=== PATIENT | male | born 1935 | race Caucasian/White ===

== ENCOUNTER 2016-05-24 23:00 | Inpatient (IN) | payer BC ==
--- NOTE | ~2016-05-24 | CN ---
Consultation Report [facility] [address] [place]. [address] NAME: LAVINIA CHAVEZ : 33 STATUS : ADM IN PAT#: [id number] AGE: 80 ADM/REG DATE : 05/25/16 MR#: [id number] REPORT SERV DATE: 06/04/16 DICTATED BY: JAYE SANCHEZ DATE: 06/04/16 REPORT STATUS : Draft TRANSCRIBED BY: MODL DATE: 06/04/16 NEPHROLOGY CONSULTATION DATE OF CONSULTATION: 06/04/2016 INDICATION FOR CONSULTATION: Recurrent UTI, recurrent acute kidney injury. HISTORY OF PRESENT ILLNESS: Mr. Chavez is an 80-year-old male who is seen for acute on chronic kidney disease that is recurrent following admission for acute kidney injury on chronic kidney disease with MRSA UTI and urinary retention. At time of Espinoza placement, there was greater than 1000 mL of urine. His initial creatinine was 2.65 and fell to a low value of 1.55. He subsequently developed a minor rash, and his creatinine has risen from 1.4 to a value of 3.59. He has had very little urine output according to his daughter. There has been discontinuation of losartan, Maxzide, Demadex due to the kidney failure and rash. Urine eosinophils were negative. His sedimentation rate is elevated to 108. Complements were normal. He currently has been afebrile and hemodynamically stable with a white blood cell count that was 11.4. He has been on prolonged vancomycin, transitioning to Zyvox since admission. PAST MEDICAL HISTORY: CKD stage 3, baseline creatinine likely 1.15 to 1.5; hypertension; chronic atrial fibrillation; lymphedema; BPH with urinary retention status post recent TURP; MRSA UTI; hyponatremia; lacunar strokes; and gout. PAST SURGICAL HISTORY: Recent cysto with TURP on 05/31/2016. PAST SURGICAL HISTORY: Cervical spine surgery x3, cholecystectomy, appendectomy, hemorrhoidectomy with recent TURP. ALLERGIES: ALLERGIES TO LIPITOR. CURRENT MEDICATIONS: Current medications include gabapentin, Zyvox, metoprolol, Protonix, hydralazine, and propafenone. Coumadin has been on hold due to prostate surgery. REVIEW OF SYSTEMS: The patient is too lethargic to obtain. Daughter at bedside indicates that he has had no urine output. His edema is better. He is having no shortness of breath. He is tolerating intake without difficulty, having no diarrhea. Otherwise 12-point review of systems is unobtainable. PHYSICAL EXAMINATION: GENERAL: Elderly male, lethargic, arousable, nonverbal. VITAL SIGNS: Temperature 97.9, blood pressure 132/66, pulse 83, and respiratory rate 16. HEENT: Eyes, no scleral icterus. Pupils equal, reactive to light. Extraocular movement intact. Nares patent. No discharge. Throat, no injection. Mucous membranes somewhat dry. Consultation Report [place] [id number] [facility] [address] NAME: LAVINIA CHAVEZ : 33 STATUS : ADM IN [facility]#: [id number] AGE: 80 ADM/REG DATE : 05/25/16 MR#: [id number] REPORT SERV DATE: 06/04/16 DICTATED BY: JAYE SANCHEZ DATE: 06/04/16 REPORT STATUS : Draft TRANSCRIBED BY: KRISTEN DATE: 06/04/16 NECK: No thyromegaly, masses, or bruits. CHEST/LUNGS: Few late crackles laterally and posteriorly. No wheezing. No dullness. CARDIAC: Irregular rhythm, 1/6 systolic ejection murmur. No gallop. No rub. ABDOMEN: Supple. Normoactive bowel sounds. Nontender. No hepatosplenomegaly. No guarding. : Indwelling Espinoza. Rectal not performed. EXTREMITIES: Trace edema. No calf tenderness. DERMIS: Minimal rash under axilla and on the right thigh. No other skin lesions of significance. NEUROLOGIC: Moves all extremities. Cranial nerves appear intact. MUSCULOSKELETAL: No deformity. IMPRESSION: 1. 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 I doubt significant angiotensin receptor lyn effect and presently doubt infection. 2. Dermatitis, possible acute drug reaction. Presently, this is minimal. 3. Hypertension. 4. Chronic atrial fibrillation, Coumadin on hold. 5. History of lower extremity lymphedema. 6. Anemia. 7. Benign prostatic hyperplasia with urinary retention status post TURP on 05/31/2016. 8. MRSA urinary tract infection. 9. Hyponatremia. 10.Gout. 11.Remote lacunar strokes. PLAN: 1. Concur with discontinuation of Maxzide, Demadex. 2. We will discontinue Neurontin and Protonix. 3. We will obtain ID consult to determine need for ongoing antibiotics. 4. Postvoid residual if elevated would replace Espinoza. 5. Edecrin if needed for diuresis. CG/KRISTEN Jaye Sanchez M.D. / [id number] CC: Rafa Ram M.D. Consultation Report [address] [place]. [address] NAME: LAVINIA CHAVEZ : 33 STATUS : ADM IN [facility]#: [id number] AGE: 80 ADM/REG DATE : 05/25/16 MR#: [id number] REPORT SERV DATE: 06/04/16 DICTATED BY: JAYE SANCHEZ DATE: 06/04/16 REPORT STATUS : Draft TRANSCRIBED BY: MODL DATE: 06/04/16 Lenora Adams M.D.
--- NOTE | ~2016-05-24 | DS ---
Discharge Summary [facility] [address] [place]. [address] NAME: LAVINIA CHAVEZ : 33 STATUS : ADM IN PAT#: [id number] AGE: 80 ADM/REG DATE : 05/25/16 MR#: [id number] REPORT SERV DATE: 06/14/16 DICTATED BY: ANGELA TOUSSAINT DATE: 06/14/16 REPORT STATUS : Draft TRANSCRIBED BY: MODL DATE: 06/14/16 ADMISSION DATE: 05/25/2016 DISCHARGE DATE: 06/14/2016 FINAL HOSPITAL DIAGNOSES: 1. Acute kidney injury on chronic kidney disease, status post acute renal failure. Currently back off temporary dialysis. 2. Methicillin-resistant Staphylococcus aureus urinary tract infection, resolved. 3. Hypertension. 4. Atrial fibrillation. 5. Urinary retention, status post transurethral resection of the prostate. CONSULTATIONS: Urology, Nephrology, Intervention Radiology, and Infectious Disease. PROCEDURES: As listed in previous interim summaries. CURRENT PHYSICAL FINDINGS AND HISTORY OF PRESENT ILLNESS: Please see initially dictated H and P by Dr. Scott on 05/25/2016, interim summary by Dr. Quinteros on 06/01/2016, and interim summary by Todd Higgins on 06/07/2016. I took over the patient's care on 06/08/2016, and I will dictate from that point. Briefly, the patient had been admitted for urinary obstruction, had MRSA UTI, was treated, underwent TURP, appears to have had a drug reaction, had acute kidney injury, temporary hemodialysis, and was undergoing dialysis when I saw him on 06/08/2016. He had been clinically stable at that time. He had undergone a renal biopsy and results were back on 06/09/2016. It was elected to treat him with high-dose steroids for 3 days to hopefully improve his kidney function, which was done and he was temporarily started on a sliding scale. Nephrology continued to follow him and dialyze him as necessary. It was noted at that time that the patient had been off his Coumadin, which he had been on for atrial fibrillation due to his TURP and then his renal biopsy on 06/07/2016, so his Coumadin was restarted. The patient, however, was noted to be in sinus rhythm on his telemetry here. Pharmacy adjusted and dosed his Coumadin. As the patient's renal function continue to improve, dialysis was withheld. He seemed to be steroid-responsive. Infectious Disease had signed off from his UTI, which had resolved. He continued to have his Espinoza catheter and Urology was following him periodically. Daily INRs were followed and INR was increasing; however, it was then felt necessary to hold his Coumadin for his line removal, which was done. The patient's only other complaint was trouble sleeping and Seroquel was given. Urology was able to remove his catheter. He was able to void. He was having no hematuria from withdrawing the anticoagulants, and they signed off on 06/13/2016. His catheter was removed on 06/14/2016 and he is currently not having any difficulty post removal. His steroids have titrated off. His blood sugar checks have stopped. He did complain of constipation, which was treated on 06/13/2016 and PT continued to work with him. He will receive 4 mg of Coumadin today. Interventional Radiology approved him restarting his Coumadin. He is off dialysis. Nephrology signed off and Urology signed off. The patient has been accepted at [facility] and will transfer this evening. MEDICATIONS: Toprol-XL 50 one per day, Rythmol 225 b.i.d., Seroquel 50 at bedtime, and Carafate 1 g before meals and at bedtime. Coumadin dose will be 4 mg this evening, he was Discharge Summary [address] [address] NAME: LAVINIA CHAVEZ : 33 STATUS : ADM IN [facility]#: [id number] AGE: 80 ADM/REG DATE : 05/25/16 MR#: [id number] REPORT SERV DATE: 06/14/16 DICTATED BY: ANGELA TOUSSAINT DATE: 06/14/16 REPORT STATUS : Draft TRANSCRIBED BY: MODRay DATE: 06/14/16 previously on 3, we will ask the daily INRs to be checked and Coumadin adjusted accordingly. Hydralazine 50 q.8, hydrocodone 5/325 q.i.d. p.r.n., Prevacid 15, and Tylenol p.r.n. He will not resume his Zyloprim, his Cozaar, his Pyridium, and his Bactrim. They were on his home medication list. He is to follow up with Nephrology in one to two weeks, and Dr. Fitzpatrick in six weeks. ALFRED/KRISTEN Angela Toussaint M.D. / [id number]
--- NOTE | ~2016-05-24 | OP ---
Record Of Operation [facility] [address] [place]. [address] NAME: LAVINIA CHAVEZ : 33 STATUS : ADM IN PAT#: [id number] AGE: 80 ADM/REG DATE : 05/25/16 MR#: [id number] REPORT SERV DATE: 05/31/16 DICTATED BY: GIGI RAYA DATE: 05/31/16 REPORT STATUS : Draft TRANSCRIBED BY: MODL DATE: 05/31/16 DATE OF PROCEDURE: 05/31/2016 PREOPERATIVE DIAGNOSIS: Urinary retention. POSTOPERATIVE DIAGNOSIS: Urinary retention. PROCEDURE: Cysto TURP. ANESTHESIA: General inhalation. SURGEON: Gigi Raya M.D. ESTIMATED BLOOD LOSS: Less than 100 mL. COMPLICATIONS: None. SPECIMENS: Prostate chips. DRAINS: One #24, 30 mL, three-way Espinoza catheter. IMMEDIATE POSTOP: Satisfactory. DESCRIPTION OF PROCEDURE: The patient was brought in the cysto suite, given inhalational anesthetic, and placed in lithotomy position. Perineum and genitalia were prepped and draped in sterile fashion. Video cystourethroscopy was then performed using #22 cystoscope with Foroblique lens. Distal urethra was normal. Prostate was moderately large in size. Bilobar configuration with a broad base median lobe. Bladder showed moderate trabeculation. No cellules, diverticular stones, blood clots, or tumors were noted. The ureteral orifices were identified and checked periodically throughout the case. Resection to be dictated below and at the close of resection be dictated below were found to be grossly undisturbed and uninvolved in the resected field. Likewise the external sphincter was not involved. At this point, the cystoscope was removed. The urethra was dilated with Emily sounds to a 30 followed by insertion of a #28 continuous flow resectoscope sheath and obturator. The obturator was removed and placed in working element and Foroblique lens. The obstructing tissue was then resected in the following manner: Initial area to be resected was the broad- based median lobe down to circular muscle fibers of the bladder wall. This was followed by resection of the anterior lobe, left lateral lobe, right lateral lobe, floor of the apex, in that order. Cautery was obtained using a "roller" electrode. Hemostasis was quite satisfactory. Orifices were not involved. Prostate chips were evacuated using the Trang evacuator. Bladder was checked for residual chips. None were noted. At this point, #24, 30 mL, three-way Espinoza catheter was placed in the bladder. Balloon inflated, hooked to drainage and continuous irrigation. Taped in gentle traction on the patient's thigh. Irrigant returned clear. The patient was awakened and sent to recovery in satisfactory condition. There were no complications. Record Of Operation [address] [place] [place] [address] NAME: LAVINIA CHAVEZ : 33 STATUS : ADM IN [facility]#: [id number] AGE: 80 ADM/REG DATE : 05/25/16 MR#: [id number] REPORT SERV DATE: 05/31/16 DICTATED BY: GIGI RAYA DATE: 05/31/16 REPORT STATUS : Draft TRANSCRIBED BY: KRISTEN DATE: 05/31/16 MS/KRISTEN Gigi Raya M.D. / [id number] CC: Rickey Quinteros MD
--- NOTE | ~2016-05-24 | IDS ---
Interim Discharge Summary [facility] [address] [place]. [address] NAME: LAVINIA CHAVEZ : 33 STATUS : ADM IN PAT#: [id number] AGE: 80 ADM/REG DATE : 05/25/16 MR#: [id number] REPORT SERV DATE: 06/01/16 DICTATED BY: RICKEY PEREZ DATE: 05/31/16 REPORT STATUS : Draft TRANSCRIBED BY: MODL DATE: 05/31/16 ADMISSION DATE: 05/25/2016 DISCHARGE DATE: DATE OF INTERIM DISCHARGE: 05/31/2016. CONSULT: Gigi Fitzpatrick M.D. for Urology. PROCEDURES DONE: 05/31/[address] Kate, KEVIN. The patient had no complications. Awaiting for preliminary report. CHIEF COMPLAINT: Urinary obstruction despite having a Espinoza. HISTORY OF HOSPITAL STAY: An 80-year-old white male with past medical history of atrial fibrillation on Coumadin, chronic kidney disease stage 3, MRSA infection in the urine, hypertension, gout, presenting with urinary retention despite being on Espinoza. The patient was being treated for his urinary retention. The patient was having BPH. Initially as an outpatient, the patient has had his Coumadin on hold pending for TURP. However, the patient is continuing to having MRSA in his urine. MRSA was sensitive to vancomycin which the patient was receiving during the hospital stay. It took a little bit of approximately a week's time before the patient's MRSA in the urine improved. Once the patient underwent procedure, the patient shows no complication, has been symptom free so far from his TURP. DIAGNOSES ON INTERIM DISCHARGE: 1. Stop urination secondary to BPH. Currently, urology is on consult. The patient had a status post TURP which is doing fine. Continue [address] way Espinoza. 2. Urinary retention. 3. BPH, currently improved status post TURP. 4. Acute kidney injury secondary to problem #1. The patient's kidney function is improving. Continue hydration. 5. Urinary tract infection secondary to MRSA. The patient received extensive vancomycin during his stay. He will continue vancomycin for coverage at this time. Questionable if Urology will continue vancomycin as an outpatient. 6. Chronic atrial fibrillation, on heparin drip. Currently, the patient's Coumadin has been on hold. We will hold heparin at this time due to status post TURP. 7. Lymph edema, currently asymptomatic. SELENE/KRISTEN Rickey Perez MD / [id number] Interim Discharge Summary [address] [address] NAME: LAVINIA CHAVEZ : 33 STATUS : ADM IN [facility]#: [id number] AGE: 80 ADM/REG DATE : 05/25/16 MR#: [id number] REPORT SERV DATE: 06/01/16 DICTATED BY: RICKEY PEREZ DATE: 05/31/16 REPORT STATUS : Draft TRANSCRIBED BY: KRISTEN DATE: 05/31/16 CC: Rickey Perez MD
--- NOTE | ~2016-05-24 | CN ---
Consultation Report [facility] [address] [place]. [address] NAME: LAVINIA CHAVEZ : 33 STATUS : ADM IN PAT#: [id number] AGE: 80 ADM/REG DATE : 05/25/16 MR#: [id number] REPORT SERV DATE: 06/05/16 DICTATED BY: NIKHIL FELDMAN DATE: 06/05/16 REPORT STATUS : Draft TRANSCRIBED BY: MODL DATE: 06/05/16 INFECTIOUS DISEASE CONSULTATION DATE OF CONSULTATION: 06/05/2016 REASON FOR CONSULTATION: Antibiotic recommendations. HISTORY OF PRESENT ILLNESS: This is an 80-year-old man with a past medical history of chronic kidney disease, hypertension, atrial fibrillation, and BPH. He suffered a fall back in April and lacerated his scalp, which required a surgical repair and postoperatively developed a urinary retention and has had a Espinoza catheter in place since mid April. Plans have been made for outpatient TURP, but this was delayed and then the patient developed symptoms suggestive of infection and was started on Bactrim as an outpatient after a urine culture on 05/19 and 05/22 grew MRSA. However, he was admitted to the hospital on 05/25 because of increasing suprapubic pain and lack of output from the Espinoza catheter. In the emergency department, the catheter was changed and he had 1000 mL out. His white count was 15,500 and creatinine had gone up to 2.65 from 1.57 the previous week. His urinalysis also showed marked pyuria, and the urine culture again grew MRSA. The patient was placed on vancomycin. On 05/31, he underwent TURP via a cystoscopic approach. Pathology showed focal severe acute inflammation and some areas of probable ischemic necrosis. Shortly after that, the patient developed a rash, which has now improved. It was nonpruritic. Since 06/01, the patient has developed worsening creatinine, going from 1.39 on 06/01 to today's value of 4.78. He has had no fever. He has no other complaints to me this morning, other than some mild nausea just this morning. Urinary eosinophils have been negative. The patient's workup also was notable for a sedimentation rate of 108 and normal C3 and C4. The patient's vancomycin was switched to Zyvox on 06/01. He also received 48 hours of cefoxitin on 05/30 and 05/31 along with doses of ceftriaxone on 05/21 and 05/25. PAST MEDICAL HISTORY: In addition to the above is notable for gout, cholecystectomy, appendectomy, hemorrhoidectomy, cervical spine surgery, and strokes in 2003. ALLERGIES: LIPITOR. PRESENT MEDICATIONS: In addition to the Zyvox include Neurontin, hydralazine, Toprol-XL, Protonix, Rythmol. SOCIAL HISTORY: Distant smoker. Nondrinker. Lives with his of many years. Just retired in March. FAMILY HISTORY: Unremarkable to the present infectious disease issue. REVIEW OF SYSTEMS: Denies any abdominal pain, chest pain, shortness of breath, cough, or diarrhea. He is anorexic. Consultation Report [address] [place]. [address] NAME: LAVINIA CHAVEZ : 33 STATUS : ADM IN [facility]#: [id number] AGE: 80 ADM/REG DATE : 05/25/16 MR#: [id number] REPORT SERV DATE: 06/05/16 DICTATED BY: NIKHIL FELDMAN DATE: 06/05/16 REPORT STATUS : Draft TRANSCRIBED BY: KRISTEN DATE: 06/05/16 PHYSICAL EXAMINATION: VITAL SIGNS: The patient weighs 131 kg. He is presently afebrile. Blood pressure 111/69, pulse 94, respiratory rate 16, oxygen saturation 94%. GENERAL: He is alert and pleasant, in no acute distress at all. HEAD AND NECK: Extraocular movements were intact. The oral cavity shows no thrush. Neck is supple. LUNGS: Clear to auscultation anteriorly and laterally. CARDIAC: Without murmur, gallop, or rub. ABDOMEN: Obese. Bowel sounds are present. The abdomen is soft and nontender. EXTREMITIES: Show some ppig-an-djzey lower extremity edema. SKIN: Reveals an erythematous, mainly purpuric rash involving mainly at this point the lateral thighs and hips. Some of these lesions are slightly palpable. The patient has a Espinoza catheter in place. He has peripheral IV without phlebitis. LABORATORY STUDIES: White blood cell count today 9.1, hemoglobin 10.8, platelets are 393. Creatinine of 4.78. Albumin 2.0. Sedimentation rate 108. Liver function tests back on 05/31 were normal. MICROBIOLOGY STUDIES: As outlined above. The patient had followup urine cultures on 05/28 and 05/30 and yesterday, which were negative. Most recent urinalysis from yesterday shows 100 mg/dL of protein, large blood, large leukocyte esterase, greater than 192 red cells, 27 white blood cells. ANCA and SPEP are pending. IMPRESSION: MRSA catheter-associated urinary tract infection on admission. The patient is now on day 12 of antibiotic therapy for this, which has been Zyvox since 06/01. The patient's course is complicated by acute kidney injury of uncertain etiology along with a rash. Importantly, this rash is improving despite the patient still being on Zyvox, and I am very doubtful that the Zyvox is related to the acute kidney injury. Urinary eosinophils are also negative. Certainly, it would be more likely if this is drug related that it would be secondary to the vancomycin that he had been on along with other possibilities including potentially the thiazide diuretics. PLAN: 1. I recommend continuing the Zyvox through 06/07 to complete two weeks of therapy for this complicated UTI. The patient did have some nausea this morning, but overall he has tolerated it well. 2. Consider renal ultrasound. /KRISTEN Nikhil Feldman M.D. Consultation Report [address] [address] NAME: LAVINIA CHAVEZ : 33 STATUS : ADM IN [facility]#: [id number] AGE: 80 ADM/REG DATE : 05/25/16 MR#: [id number] REPORT SERV DATE: 06/05/16 DICTATED BY: NIKHIL FELDMAN DATE: 06/05/16 REPORT STATUS : Draft TRANSCRIBED BY: MODL DATE: 06/05/16 / [id number] CC: Regla Gary M.D.
--- NOTE | ~2016-05-24 | IDS ---
Interim Discharge Summary [facility] [address] [place]. [address] NAME: LAVINIA CHAVEZ : 31 STATUS : ADM IN [facility]#: [id number] AGE: 80 ADM/REG DATE : 05/25/16 MR#: [id number] REPORT SERV DATE: 06/08/16 DICTATED BY: TODD BORGES DATE: 06/07/16 REPORT STATUS : Draft TRANSCRIBED BY: MODL DATE: 06/07/16 ADMISSION DATE: 05/25/2016 DISCHARGE DATE: REASON FOR ADMISSION: This is an 80-year-old male with a complicated urinary obstruction that presented with further urinary obstruction despite having Espinoza catheter. The patient was admitted with severe urinary obstruction, acute kidney injury on chronic kidney disease stage III, and UTI. DISCHARGE DIAGNOSES: 1. Acute kidney injury on CKD III status post acute renal failure. 2. MRSA UTI. 3. Status post rash of unclear etiology. 4. Hypertension. 5. Atrial fibrillation, anticoagulation currently being held. HOSPITAL COURSE: Please see admission H and P from Dr. Adam Scott on 05/25/2016 as well as interim discharge summary from Rickey Quinteros on 06/01/2016 for full details on admission and hospital stay. I picked up the patient actually from Dr. Ram on June 05. 1. Acute kidney injury on CKD status post Vas-Cath placement. Hemodialysis intended to be initiated tomorrow. The patient had been having issues with urinary retention and obstruction secondary to BPH, had been seeing Dr. Fitzpatrick, outpatient and was scheduled for outpatient TURP, but this had been delayed. When the patient showed symptoms of infection, he ended being admitted to the hospital on 05/25 because of increasing suprapubic pain and lack of output from his Espinoza catheter. On admission, his creatinine which had gone up to 2.65 and he had a white cell count of 15.5, when they had placed a new catheter in the ER, and they got 1000 mL out and urinalysis that showed marked pyuria and urine culture once again grew out MRSA. The patient was placed on IV vancomycin and on the , he underwent TURP. Pathology had showed severe acute inflammation with some areas of probable ischemic necrosis. Shortly after this, the patient would develop a rash which is now improved, is nonpruritic and since June 01, the patient has been developing worsening creatinine which went from 1.39 on the up to 4.78 and now up to 6.86, leading to him have a Vas-Cath being placed and renal biopsy which was also done today. Due to concerns about the etiology of kidney failure as well as kidney function, his antibiotics have been changed around. Initially was on vancomycin and then placed on Zyvox by Infectious Disease who is following the patient, Dr. Feldman, and then decision was made to frame changer to IV daptomycin, I believe, yesterday on the . The patient's urine output has been worsening and creatinine has been elevating and the patient will start hemodialysis tomorrow. He has also been placed on prednisone 60 mg p.o. daily. The patient is on anticoagulation normally for his atrial fibrillation, but that is currently on hold. CURRENT MEDICATIONS: 1. Metoprolol 50 mg p.o. daily. 2. Propafenone 225 mg p.o. b.i.d. 3. Quetiapine 25 mg p.o. at bedtime. Interim Discharge Summary [address] [address] NAME: LAVINIA CHAVEZ : 31 STATUS : ADM IN PAT#: [id number] AGE: 80 ADM/REG DATE : 05/25/16 MR#: [id number] REPORT SERV DATE: 06/08/16 DICTATED BY: TODD BORGES DATE: 06/07/16 REPORT STATUS : Draft TRANSCRIBED BY: KRISTEN DATE: 06/07/16 4. Carafate 1 g p.o. a.c. at bedtime. 5. Hydralazine 50 mg p.o. q.8 hours. 6. Prednisone 60 mg p.o. daily. CURRENT PLAN: The patient to initiate hemodialysis tomorrow per Renal and further antibiotic orders per Infectious Disease. The patient care to be assumed by Eitan Santiago M.D., this week. SAMPSON/EMIGDIOL Todd Borges APN / [id number] CC: Rafa Doroteo Leanna, M.D. Dunmor Regla Adams M.D. Hal Hill, M.D. Richard Scott Gusso, M.D.
--- NOTE | ~2016-05-24 | HP ---
History And Physical [facility] [id number] [facility]. [address] NAME: LAVINIA CHAVEZ : 31 STATUS : ADM IN PAT#: [id number] AGE: 80 ADM/REG DATE : 05/25/16 MR#: [id number] REPORT SERV DATE: 05/25/16 DICTATED BY: HANDY PETIT DATE: 05/25/16 REPORT STATUS : Draft TRANSCRIBED BY: MODL DATE: 05/25/16 DATE OF ADMISSION: 05/25/2016 CHIEF COMPLAINT: An 80-year-old male with a complicated urinary obstruction, now presenting with further urinary obstruction despite having a Espinoza catheter. HISTORY OF PRESENT ILLNESS: The patient's history was obtained through careful interview with the patient and daughter, coupled with [facility] and [facility] records. The patient's problems seem to have begun when he was stepping up on a chair to get to a high location in April 2016. He fell off the chair and hit his head. There was no loss of consciousness, but he suffered a severe deep laceration of his scalp, that was actually so severe that it was felt the patient should undergo surgical repair under the care Dr. Fonseca. Therefore, underwent anesthesia for repair of this deep laceration. Unfortunately, the anesthesia led to urinary obstruction, and on 04/13/2016, by the patient's recollection, he had a Espinoza catheter placed. He has been followed outpatient by Dr. Gigi Fitzpatrick. Unfortunately, approximately a week ago, the patient was scheduled for outpatient surgery, but had accidentally eaten a meal prior to coming in and so the procedure had to be canceled. Then the patient began to have symptoms that were concerning for infection and a urinalysis on 05/22/2016 showed MRSA infection, for which the patient was placed on Bactrim double strength. Then, on the day leading up to admission, he developed significant suprapubic abdominal pain and pressure, stating "it is like I would like to " and aching quality, a fullness, and 8 to 9 over 10 severity. He was seen in the emergency department. There was no significant drainage from his Espinoza catheter, so that catheter was removed and new Espinoza catheter was placed. The patient has a more than a 1000 mL of postvoid residual drained, with relief of the patient's abdominal discomfort. The patient has had dizziness when he had to take hydrocodone for pain. He did notice some blood clots in his urinary catheter prior to it being "stopped up." No nausea or vomiting. No fevers or chills. He has had progressive increasing lower extremity edema recently. REVIEW OF SYSTEMS: Otherwise, a 14-point review of systems was obtained and was negative. PAST MEDICAL HISTORY: 1. Atrial fibrillation. Hold Coumadin for greater than a week. 2. Holding Coumadin for more than a week now. 3. Chronic kidney disease, stage III. Baseline creatinine of 1.5. 4. MRSA infection. History And Physical [address] [place]. [address] NAME: LAVINIA CHAVEZ : 31 STATUS : ADM IN [facility]#: [id number] AGE: 80 ADM/REG DATE : 05/25/16 MR#: [id number] REPORT SERV DATE: 05/25/16 DICTATED BY: HANDY PETIT DATE: 05/25/16 REPORT STATUS : Draft TRANSCRIBED BY: KRISTEN DATE: 05/25/16 5. Hypertension. 6. Right lentiform nucleus lacunar [place] [address] scan. 7. Gout. 8. No cardiac disease. No lung disease. PAST SURGICAL HISTORY: 1. Cervical spine surgery x3. 2. Cholecystectomy. 3. Appendectomy. 4. Hemorrhoidectomy. ALLERGIES: TO LIPITOR. SOCIAL HISTORY: Quit smoking in the 1970s. No alcohol abuse. He has been to his for 59 years. He has three children. He just retired in March 2016. 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 FAMILY HISTORY: Mother with cancer. CURRENT MEDICATIONS: Include Tylenol p.r.n., allopurinol 300 mg p.o. daily, atenolol with chlorthalidone 100/25 p.o. daily, hydrocodone, p.r.n., Prevacid 15 mg p.o. daily, losartan 100 mg p.o. daily, Pyridium p.r.n., propafenone 225 mg p.o. b.i.d., Bactrim double strength, Coumadin 3 mg p.o. daily. PHYSICAL EXAMINATION: VITAL SIGNS: Temperature 99.3, pulse 71, blood pressure 139/89, respiratory rate 16, and O2 saturation 97% on room air. GENERAL: A pleasant, cooperative, male. No evidence of distress now. HEENT: Pupils equal, round, and reactive to light. No conjunctival pallor. No scleral icterus. Nares are patent. Oropharynx is clear of obstruction. Mildly dry mucous membranes. NECK: Trachea midline. No thyromegaly. LYMPHS: No cervical lymphadenopathy. No supraclavicular lymphadenopathy. No inguinal lymphadenopathy. RESPIRATORY: Clear to auscultation at the bases. No wheezes, rales, or rhonchi. Normal respiratory effort. CARDIOVASCULAR: Regular rate and rhythm. No murmurs, rubs, or gallops. The patient does have pitting lower extremity edema, deep and extending up to the knees symmetrically. ABDOMEN: Now it is soft, nontender. No flank tenderness. No hepatosplenomegaly. DERMATOLOGICAL: Warm and dry extremities. No pallor. No cyanosis. PSYCHIATRIC: Normal affect. Good mood. Alert and oriented x3. LABORATORY DATA: White blood cell count 15.5, hemoglobin 13, hematocrit 39, platelets 345. Sodium 127, potassium 4.0, chloride 93, bicarb 20, BUN 44, creatinine 2.65, glucose 90. Liver enzymes within normal limits. Urinalysis shows greater than 182 white blood cells, greater than 182 red blood cells. Significant leukocyte esterase and positive nitrites. History And Physical [address] [address] NAME: LAVINIA CHAVEZ : 31 STATUS : ADM IN [facility]#: [id number] AGE: 80 ADM/REG DATE : 05/25/16 MR#: [id number] REPORT SERV DATE: 05/25/16 DICTATED BY: HANDY PETIT DATE: 05/25/16 REPORT STATUS : Draft TRANSCRIBED BY: MODRay DATE: 05/25/16 STUDIES: A chest x-ray was reviewed in the hospital on the 05/19/2016 and it was reported as negative. ASSESSMENT AND PLAN: 1. Severe urinary obstruction. Replace Espinoza catheter with more than a 1000 mL of postvoid residual. Watch for postobstructive diuretic effect. Consult Dr. Gigi Fitzpatrick, urologist. 2. Acute kidney injury on chronic kidney disease, stage III. Mostly secondary to obstructive uropathy. Place on IV fluids. Monitor closely. 3. Urinary tract infection, with elevated white blood cell count despite Bactrim, with methicillin-resistant Staphylococcus aureus on recent culture. Recheck urine culture. Place on IV vancomycin and IV Rocephin. 4. Chronic atrial fibrillation. Check telemetry. The patient has held Coumadin for more than a week for potential procedure. Check INR. 5. Lymphedema. Check brain natriuretic peptide. I would like to check a venous Doppler ultrasound of lower extremities. KPL/MODL Handy Petit M.D. / [id number] CC: MD Lenora Butterfield M.D. Marty Scheinberg, M.D.
[2016-05-24 22:02] LABS: A/G RATIO 0.6 (0.7-1.9); ALBUMIN 3.2 G/DL (3.5-5.0); CALCIUM, SERUM 9.8 MG/DL (8.5-10.4); CHLORIDE, SERUM 93 MMOL/L (96-112); CO2 (CARBON DIOXIDE) 20 MMOL/L (24-34); GLOBULIN 5.1 G/DL (2.5-4.1); GLUCOSE, SERUM 90 MG/DL (60-99); SGOT(AST) 21 U/L (5-40); SGPT(ALT) 32 U/L (5-65); SODIUM, SERUM 127 MMOL/L (135-148); TOTAL PROTEIN 8.3 G/DL (6.0-8.5)
[2016-05-24 22:03] LABS: ALKALINE PHOSPHATASE 95 U/L (45-117); BUN (BLOOD UREA NITROGEN) 44 MG/DL (6-23); CREATININE 2.65 MG/DL (0.70-1.30); GFR AFRICAN AMERICAN 25 ML/MIN (>=60); GFR NON AFRICAN AMERICAN 21 ML/MIN (>=60)
[2016-05-24 22:10] LABS: BASOPHILS 0.1 %; BASOPHILS ABSOLUTE 0.02 10/3/uL (0.0-0.16); EOSINOPHILS 0.2 %; EOSINOPHILS ABSOLUTE 0.03 10/3/uL (0.0-0.53); HEMATOCRIT 38.8 % (40.0-51.0); HEMOGLOBIN 13.3 g/dL (13.6-17.8); IMMATURE GRANULOCYTES 0.5 %; IMMATURE GRANULOCYTES ABSOLUTE 0.07 10/3/uL (0.0-0.11); LYMPHOCYTES 9.1 %; LYMPHOCYTES ABSOLUTE 1.41 10/3/uL (0.67-4.30); MEAN CORPUS HGB CONC 34.3 g/dL (32.0-36.0); MEAN CORPUSCULAR HEMOGLOB 30.4 pg (26.0-34.0); MEAN PLATELET VOLUME 9.4 fL (9.2-13.0); MONOCYTES 6.8 %; MONOCYTES ABSOLUTE 1.06 10/3/uL (0.21-1.20); NEUTROPHILS 83.3 %; NEUTROPHILS ABSOLUTE 12.89 10/3/uL (2.02-8.40); PLATELET COUNT 345 10/3/uL (150-400); RBC DISTRIBUTION WIDTH 14.4 % (12.0-16.0); RED CELL COUNT 4.37 10/6/uL (4.7-6.1); WHITE BLOOD CELLS 15.5 10/3/uL (4.5-10.5)
[2016-05-24 22:12] LABS: ER CBC TAT 0 Hrs 30 Mins; MANUAL DIFF NO %; MEAN CORPUSCULAR VOLUME 88.8 fL (80-100)
[2016-05-24 22:32] LABS: ASCORBIC ACID (UR NOT ORDER) NEG (NEG); BILIRUBIN, URINE NEGATIVE (NEG); ER URINALYSIS TAT 0 Hrs 14 Mins; KETONE, URINE NEGATIVE (NEG); LEUKOCYTE ESTERASE(NOT OR TRACE (NEG); NITRITE (URINE) POS (NEG); WBC (NOT ORDERED) (RFLEX) > 182 (0-5)
[~2016-05-24 23:00] MED LIST: C25; COZAAR100 MG PO; IBU800 PO; PREV15 PO; RYTHMOL225 MG PO; TENORETIC1 TA1 PO; Z300 PO
[2016-05-25] MEDS ORDERED: TENORETIC1 TA1 PO (02:50)
[2016-05-25] MEDS ORDERED: NORCO1 TA1 PO (02:50)
[2016-05-25] MEDS ORDERED: BACDS PO (02:54)
[2016-05-25] MEDS ORDERED: PYR200 PO (02:54)
[2016-05-25] MEDS ORDERED: COZAAR100 MG PO (02:56)
[2016-05-25] MEDS ORDERED: COUMADIN3 MG PO (02:56)
[2016-05-25] MEDS ORDERED: Z300 PO (02:58)
[2016-05-25] MEDS ORDERED: PREV15 PO (02:59)
[2016-05-25] MEDS ORDERED: T PO (03:00)
[2016-05-25] MEDS ORDERED: RYTHMOL225 MG PO (03:02)
[2016-05-25 06:11] LABS: INTERNATIONAL NORMAL RATI 1.3 UNITS (-); PROTIME (NOT ORD) 16.5 SEC (12.0-14.5)
[2016-05-25 13:25] LABS: HEMATOCRIT 32.9 % (40.0-51.0); MEAN CORPUS HGB CONC 33.4 g/dL (32.0-36.0); MEAN CORPUSCULAR HEMOGLOB 30.5 pg (26.0-34.0); MEAN CORPUSCULAR VOLUME 91.1 fL (80-100); MEAN PLATELET VOLUME 9.1 fL (9.2-13.0); NUCLEATED RED BLOOD CELLS 1.6 /100WBC (0-0); PLATELET COUNT 320 10/3/uL (150-400); RBC DISTRIBUTION WIDTH 14.3 % (12.0-16.0); RED CELL COUNT 3.61 10/6/uL (4.7-6.1); WHITE BLOOD CELLS 9.9 10/3/uL (4.5-10.5)
[2016-05-25 13:26] LABS: MANUAL DIFF YES %
[2016-05-25 13:33] LABS: INTERNATIONAL NORMAL RATI 1.5 UNITS (-); PARTIAL THROMBO TIME 43.4 SEC (22.5-37.2); PROTIME (NOT ORD) 18.4 SEC (12.0-14.5)
[2016-05-25 13:47] LABS: BAND NEUTROPHILS 12 %; LYMPHOCYTES 10 %; LYMPHOCYTES ABSOLUTE (CALC) 0.99 10/3/uL (0.67-4.30); MONOCYTES 8 %; MONOCYTES ABSOLUTE (CALC) 0.79 10/3/uL (0.21-1.20); NEUTROPHILS ABSOLUTE (CALC) 8.12 10/3/uL (2.02-8.40); SEGMENTED NEUTROPHIL (0) 70 %; TOTAL NUCLEATED CELLS 100
[2016-05-25 13:48] LABS: PLATELET ESTIMATE ADQ (ADEQUATE); RBC MORPHOLOGY NORM (NORMAL)
[2016-05-25 19:46] LABS: ALKALINE PHOSPHATASE 96 U/L (45-117); BUN (BLOOD UREA NITROGEN) 41 MG/DL (6-23); CHLORIDE, SERUM 100 MMOL/L (96-112); CO2 (CARBON DIOXIDE) 16 MMOL/L (24-34); GLUCOSE, SERUM 89 MG/DL (60-99); PHOSPHORUS, SERUM 3.2 MG/DL (2.5-4.5); POTASSIUM, SERUM 4.1 MMOL/L (3.5-5.3); SGPT(ALT) 28 U/L (5-65); SODIUM, SERUM 131 MMOL/L (135-148); TOTAL PROTEIN 6.9 G/DL (6.0-8.5); ULTRASENSITIVE TSH 0.492 MCIU/ML (0.358-3.740)
[2016-05-25 19:47] LABS: A/G RATIO 0.6 (0.7-1.9); ALBUMIN 2.5 G/DL (3.5-5.0); CALCIUM, SERUM 8.8 MG/DL (8.5-10.4); GFR AFRICAN AMERICAN 33 ML/MIN (>=60); GFR NON AFRICAN AMERICAN 28 ML/MIN (>=60); GLOBULIN 4.4 G/DL (2.5-4.1); SGOT(AST) 30 U/L (5-40); TOTAL BILIRUBIN 0.5 MG/DL (0-1.2)
[2016-05-26 06:19] LABS: BASOPHILS 0.4 %; BASOPHILS ABSOLUTE 0.03 10/3/uL (0.0-0.16); EOSINOPHILS 0.9 %; EOSINOPHILS ABSOLUTE 0.07 10/3/uL (0.0-0.53); HEMATOCRIT 35.7 % (40.0-51.0); HEMOGLOBIN 12.1 g/dL (13.6-17.8); IMMATURE GRANULOCYTES 0.4 %; IMMATURE GRANULOCYTES ABSOLUTE 0.03 10/3/uL (0.0-0.11); LYMPHOCYTES 20.5 %; LYMPHOCYTES ABSOLUTE 1.55 10/3/uL (0.67-4.30); MEAN CORPUS HGB CONC 33.9 g/dL (32.0-36.0); MEAN CORPUSCULAR HEMOGLOB 30.9 pg (26.0-34.0); MEAN CORPUSCULAR VOLUME 91.3 fL (80-100); MEAN PLATELET VOLUME 9.3 fL (9.2-13.0); MONOCYTES 11.2 %; MONOCYTES ABSOLUTE 0.85 10/3/uL (0.21-1.20); NEUTROPHILS 66.6 %; NEUTROPHILS ABSOLUTE 5.04 10/3/uL (2.02-8.40); PLATELET COUNT 365 10/3/uL (150-400); RBC DISTRIBUTION WIDTH 14.7 % (12.0-16.0); RED CELL COUNT 3.91 10/6/uL (4.7-6.1); WHITE BLOOD CELLS 7.6 10/3/uL (4.5-10.5)
[2016-05-26 06:20] LABS: MANUAL DIFF NO %
[2016-05-26 06:27] LABS: A/G RATIO 0.6 (0.7-1.9); ALBUMIN 2.7 G/DL (3.5-5.0); ALKALINE PHOSPHATASE 86 U/L (45-117); CALCIUM, SERUM 9.3 MG/DL (8.5-10.4); CHLORIDE, SERUM 99 MMOL/L (96-112); GFR AFRICAN AMERICAN 40 ML/MIN (>=60); GFR NON AFRICAN AMERICAN 34 ML/MIN (>=60); GLOBULIN 4.7 G/DL (2.5-4.1); GLUCOSE, SERUM 88 MG/DL (60-99); PHOSPHORUS, SERUM 2.5 MG/DL (2.5-4.5); POTASSIUM, SERUM 3.8 MMOL/L (3.5-5.3); SGOT(AST) 33 U/L (5-40); SGPT(ALT) 35 U/L (5-65); SODIUM, SERUM 134 MMOL/L (135-148); TOTAL BILIRUBIN 0.8 MG/DL (0-1.2); TOTAL PROTEIN 7.4 G/DL (6.0-8.5)
[2016-05-26 06:31] LABS: BUN (BLOOD UREA NITROGEN) 33 MG/DL (6-23); CO2 (CARBON DIOXIDE) 22 MMOL/L (24-34)
[2016-05-27 07:58] LABS: BASOPHILS 0.4 %; BASOPHILS ABSOLUTE 0.03 10/3/uL (0.0-0.16); EOSINOPHILS 1.7 %; EOSINOPHILS ABSOLUTE 0.13 10/3/uL (0.0-0.53); HEMATOCRIT 36.4 % (40.0-51.0); IMMATURE GRANULOCYTES 0.7 %; IMMATURE GRANULOCYTES ABSOLUTE 0.05 10/3/uL (0.0-0.11); LYMPHOCYTES 23.3 %; LYMPHOCYTES ABSOLUTE 1.76 10/3/uL (0.67-4.30); MANUAL DIFF NO %; MEAN CORPUSCULAR HEMOGLOB 30.4 pg (26.0-34.0); MEAN CORPUSCULAR VOLUME 92.2 fL (80-100); MONOCYTES ABSOLUTE 0.68 10/3/uL (0.21-1.20); NEUTROPHILS 64.9 %; NEUTROPHILS ABSOLUTE 4.89 10/3/uL (2.02-8.40); PLATELET COUNT 378 10/3/uL (150-400); RBC DISTRIBUTION WIDTH 14.7 % (12.0-16.0); RED CELL COUNT 3.95 10/6/uL (4.7-6.1); WHITE BLOOD CELLS 7.5 10/3/uL (4.5-10.5)
[2016-05-27 08:26] LABS: ALBUMIN 2.7 G/DL (3.5-5.0); CALCIUM, SERUM 9.2 MG/DL (8.5-10.4); CHLORIDE, SERUM 105 MMOL/L (96-112); CO2 (CARBON DIOXIDE) 20 MMOL/L (24-34); CREATININE 1.36 MG/DL (0.70-1.30); GFR AFRICAN AMERICAN 56 ML/MIN (>=60); GFR NON AFRICAN AMERICAN 48 ML/MIN (>=60); GLUCOSE, SERUM 93 MG/DL (60-99); PHOSPHORUS, SERUM 2.2 MG/DL (2.5-4.5); POTASSIUM, SERUM 4.2 MMOL/L (3.5-5.3); SODIUM, SERUM 138 MMOL/L (135-148)
[2016-05-27 08:27] LABS: BUN (BLOOD UREA NITROGEN) 22 MG/DL (6-23)
[2016-05-27 08:44] LABS: BUN (BLOOD UREA NITROGEN) 22 MG/DL (6-23); CALCIUM, SERUM 9.4 MG/DL (8.5-10.4); CHLORIDE, SERUM 105 MMOL/L (96-112); CO2 (CARBON DIOXIDE) 19 MMOL/L (24-34); CREATININE 1.35 MG/DL (0.70-1.30); GFR AFRICAN AMERICAN 56 ML/MIN (>=60); GFR NON AFRICAN AMERICAN 49 ML/MIN (>=60); GLUCOSE, SERUM 95 MG/DL (60-99); POTASSIUM, SERUM 4.1 MMOL/L (3.5-5.3); SODIUM, SERUM 135 MMOL/L (135-148)
[2016-05-27 13:28] LABS: INTERNATIONAL NORMAL RATI 1.2 UNITS (-); PARTIAL THROMBO TIME 39.2 SEC (22.5-37.2); PROTIME (NOT ORD) 15.1 SEC (12.0-14.5)
[2016-05-28 06:36] LABS: BASOPHILS 0.2 %; BASOPHILS ABSOLUTE 0.02 10/3/uL (0.0-0.16); EOSINOPHILS 1.2 %; EOSINOPHILS ABSOLUTE 0.11 10/3/uL (0.0-0.53); HEMATOCRIT 35.2 % (40.0-51.0); HEMOGLOBIN 11.6 g/dL (13.6-17.8); IMMATURE GRANULOCYTES ABSOLUTE 0.09 10/3/uL (0.0-0.11); LYMPHOCYTES 22.9 %; LYMPHOCYTES ABSOLUTE 2.03 10/3/uL (0.67-4.30); MEAN CORPUSCULAR HEMOGLOB 30.3 pg (26.0-34.0); MEAN CORPUSCULAR VOLUME 91.9 fL (80-100); MONOCYTES 6.7 %; MONOCYTES ABSOLUTE 0.59 10/3/uL (0.21-1.20); NEUTROPHILS ABSOLUTE 6.02 10/3/uL (2.02-8.40); PLATELET COUNT 383 10/3/uL (150-400); RBC DISTRIBUTION WIDTH 14.5 % (12.0-16.0); RED CELL COUNT 3.83 10/6/uL (4.7-6.1); WHITE BLOOD CELLS 8.9 10/3/uL (4.5-10.5)
[2016-05-28 06:43] LABS: MANUAL DIFF NO %
[2016-05-28 06:51] LABS: A/G RATIO 0.6 (0.7-1.9); ALBUMIN 2.6 G/DL (3.5-5.0); ALKALINE PHOSPHATASE 79 U/L (45-117); BUN (BLOOD UREA NITROGEN) 15 MG/DL (6-23); CALCIUM, SERUM 8.9 MG/DL (8.5-10.4); CHLORIDE, SERUM 102 MMOL/L (96-112); CO2 (CARBON DIOXIDE) 20 MMOL/L (24-34); CREATININE 1.26 MG/DL (0.70-1.30); GFR AFRICAN AMERICAN 61 ML/MIN (>=60); GFR NON AFRICAN AMERICAN 53 ML/MIN (>=60); GLOBULIN 4.6 G/DL (2.5-4.1); GLUCOSE, SERUM 108 MG/DL (60-99); PHOSPHORUS, SERUM 2.5 MG/DL (2.5-4.5); POTASSIUM, SERUM 4.2 MMOL/L (3.5-5.3); SGOT(AST) 46 U/L (5-40); SGPT(ALT) 41 U/L (5-65); SODIUM, SERUM 135 MMOL/L (135-148); TOTAL BILIRUBIN 0.7 MG/DL (0-1.2); TOTAL PROTEIN 7.2 G/DL (6.0-8.5)
[2016-05-28 06:54] LABS: PARTIAL THROMBO TIME 42.2 SEC (22.5-37.2)
[2016-05-28 18:17] LABS: ASCORBIC ACID (UR NOT ORDER) NEG (NEG); BILIRUBIN, URINE NEGATIVE (NEG); KETONE, URINE NEGATIVE (NEG); LEUKOCYTE ESTERASE(NOT OR LARGE (NEG)
[2016-05-28 18:19] LABS: WBC (NOT ORDERED) (RFLEX) > 182 (0-5)
[2016-05-29 07:06] LABS: BASOPHILS 0.2 %; BASOPHILS ABSOLUTE 0.02 10/3/uL (0.0-0.16); EOSINOPHILS 0.5 %; EOSINOPHILS ABSOLUTE 0.05 10/3/uL (0.0-0.53); HEMATOCRIT 33.3 % (40.0-51.0); IMMATURE GRANULOCYTES 1.1 %; IMMATURE GRANULOCYTES ABSOLUTE 0.11 10/3/uL (0.0-0.11); LYMPHOCYTES 15.8 %; LYMPHOCYTES ABSOLUTE 1.61 10/3/uL (0.67-4.30); MEAN CORPUSCULAR HEMOGLOB 30.2 pg (26.0-34.0); MEAN CORPUSCULAR VOLUME 91.5 fL (80-100); MEAN PLATELET VOLUME 8.6 fL (9.2-13.0); MONOCYTES 9.1 %; MONOCYTES ABSOLUTE 0.93 10/3/uL (0.21-1.20); NEUTROPHILS 73.3 %; PLATELET COUNT 330 10/3/uL (150-400); RBC DISTRIBUTION WIDTH 14.4 % (12.0-16.0); RED CELL COUNT 3.64 10/6/uL (4.7-6.1); WHITE BLOOD CELLS 10.2 10/3/uL (4.5-10.5)
[2016-05-29 07:17] LABS: MANUAL DIFF NO %
[2016-05-29 07:23] LABS: A/G RATIO 0.5 (0.7-1.9); ALBUMIN 2.4 G/DL (3.5-5.0); ALKALINE PHOSPHATASE 71 U/L (45-117); BUN (BLOOD UREA NITROGEN) 12 MG/DL (6-23); CALCIUM, SERUM 8.5 MG/DL (8.5-10.4); CHLORIDE, SERUM 98 MMOL/L (96-112); CO2 (CARBON DIOXIDE) 21 MMOL/L (24-34); CREATININE 1.23 MG/DL (0.70-1.30); GFR AFRICAN AMERICAN 63 ML/MIN (>=60); GFR NON AFRICAN AMERICAN 54 ML/MIN (>=60); GLOBULIN 4.4 G/DL (2.5-4.1); GLUCOSE, SERUM 118 MG/DL (60-99); PHOSPHORUS, SERUM 2.3 MG/DL (2.5-4.5); POTASSIUM, SERUM 3.8 MMOL/L (3.5-5.3); SGOT(AST) 40 U/L (5-40); SGPT(ALT) 38 U/L (5-65); SODIUM, SERUM 131 MMOL/L (135-148); TOTAL BILIRUBIN 1.6 MG/DL (0-1.2); TOTAL PROTEIN 6.8 G/DL (6.0-8.5)
[2016-05-30 06:20] LABS: ASCORBIC ACID (UR NOT ORDER) NEG (NEG); BILIRUBIN, URINE NEGATIVE (NEG); KETONE, URINE NEGATIVE (NEG); LEUKOCYTE ESTERASE(NOT OR SMALL (NEG); WBC (NOT ORDERED) (RFLEX) 40 (0-5)
[2016-05-30 08:29] LABS: BASOPHILS 0.1 %; BASOPHILS ABSOLUTE 0.01 10/3/uL (0.0-0.16); EOSINOPHILS 0.6 %; EOSINOPHILS ABSOLUTE 0.05 10/3/uL (0.0-0.53); HEMATOCRIT 32.8 % (40.0-51.0); HEMOGLOBIN 10.7 g/dL (13.6-17.8); IMMATURE GRANULOCYTES ABSOLUTE 0.09 10/3/uL (0.0-0.11); LYMPHOCYTES 15.8 %; LYMPHOCYTES ABSOLUTE 1.42 10/3/uL (0.67-4.30); MEAN CORPUS HGB CONC 32.6 g/dL (32.0-36.0); MEAN CORPUSCULAR HEMOGLOB 29.6 pg (26.0-34.0); MEAN CORPUSCULAR VOLUME 90.9 fL (80-100); MEAN PLATELET VOLUME 8.7 fL (9.2-13.0); MONOCYTES ABSOLUTE 0.72 10/3/uL (0.21-1.20); NEUTROPHILS 74.5 %; PLATELET COUNT 359 10/3/uL (150-400); RBC DISTRIBUTION WIDTH 14.5 % (12.0-16.0); RED CELL COUNT 3.61 10/6/uL (4.7-6.1)
[2016-05-30 08:30] LABS: MANUAL DIFF NO %
[2016-05-30 08:39] LABS: A/G RATIO 0.4 (0.7-1.9); ALBUMIN 2.1 G/DL (3.5-5.0); ALKALINE PHOSPHATASE 62 U/L (45-117); BUN (BLOOD UREA NITROGEN) 10 MG/DL (6-23); CHLORIDE, SERUM 101 MMOL/L (96-112); CO2 (CARBON DIOXIDE) 25 MMOL/L (24-34); CREATININE 1.15 MG/DL (0.70-1.30); GFR AFRICAN AMERICAN 68 ML/MIN (>=60); GFR NON AFRICAN AMERICAN 59 ML/MIN (>=60); GLOBULIN 4.8 G/DL (2.5-4.1); GLUCOSE, SERUM 125 MG/DL (60-99); PHOSPHORUS, SERUM 2.1 MG/DL (2.5-4.5); POTASSIUM, SERUM 3.8 MMOL/L (3.5-5.3); SGOT(AST) 35 U/L (5-40); SGPT(ALT) 37 U/L (5-65); SODIUM, SERUM 136 MMOL/L (135-148); TOTAL PROTEIN 6.9 G/DL (6.0-8.5)
[2016-05-30 08:40] LABS: TOTAL BILIRUBIN 0.6 MG/DL (0-1.2)
[2016-05-31 03:44] LABS: BASOPHILS 0.2 %; BASOPHILS ABSOLUTE 0.02 10/3/uL (0.0-0.16); EOSINOPHILS ABSOLUTE 0.08 10/3/uL (0.0-0.53); HEMATOCRIT 31.6 % (40.0-51.0); HEMOGLOBIN 10.5 g/dL (13.6-17.8); IMMATURE GRANULOCYTES 0.9 %; IMMATURE GRANULOCYTES ABSOLUTE 0.07 10/3/uL (0.0-0.11); LYMPHOCYTES 17.9 %; LYMPHOCYTES ABSOLUTE 1.44 10/3/uL (0.67-4.30); MEAN CORPUS HGB CONC 33.2 g/dL (32.0-36.0); MEAN CORPUSCULAR HEMOGLOB 30.4 pg (26.0-34.0); MEAN CORPUSCULAR VOLUME 91.6 fL (80-100); MEAN PLATELET VOLUME 8.7 fL (9.2-13.0); MONOCYTES ABSOLUTE 0.56 10/3/uL (0.21-1.20); NEUTROPHILS ABSOLUTE 5.86 10/3/uL (2.02-8.40); PLATELET COUNT 374 10/3/uL (150-400); RBC DISTRIBUTION WIDTH 14.5 % (12.0-16.0); RED CELL COUNT 3.45 10/6/uL (4.7-6.1)
[2016-05-31 03:51] LABS: MANUAL DIFF NO %
[2016-05-31 03:58] LABS: A/G RATIO 0.4 (0.7-1.9); ALBUMIN 2.1 G/DL (3.5-5.0); ALKALINE PHOSPHATASE 72 U/L (45-117); BUN (BLOOD UREA NITROGEN) 9 MG/DL (6-23); CALCIUM, SERUM 8.8 MG/DL (8.5-10.4); CHLORIDE, SERUM 99 MMOL/L (96-112); CO2 (CARBON DIOXIDE) 25 MMOL/L (24-34); CREATININE 1.54 MG/DL (0.70-1.30); GFR AFRICAN AMERICAN 48 ML/MIN (>=60); GFR NON AFRICAN AMERICAN 41 ML/MIN (>=60); GLOBULIN 4.8 G/DL (2.5-4.1); GLUCOSE, SERUM 111 MG/DL (60-99); PHOSPHORUS, SERUM 2.3 MG/DL (2.5-4.5); SGOT(AST) 34 U/L (5-40); SGPT(ALT) 43 U/L (5-65); SODIUM, SERUM 133 MMOL/L (135-148); TOTAL BILIRUBIN 0.6 MG/DL (0-1.2); TOTAL PROTEIN 6.9 G/DL (6.0-8.5); VANCOMYCIN TROUGH 16.7 MCG/ML (10.0-20.0)
[2016-06-01 06:28] LABS: BASOPHILS 0.1 %; BASOPHILS ABSOLUTE 0.01 10/3/uL (0.0-0.16); EOSINOPHILS 0.9 %; EOSINOPHILS ABSOLUTE 0.09 10/3/uL (0.0-0.53); HEMATOCRIT 34.8 % (40.0-51.0); HEMOGLOBIN 11.5 g/dL (13.6-17.8); IMMATURE GRANULOCYTES 0.8 %; IMMATURE GRANULOCYTES ABSOLUTE 0.08 10/3/uL (0.0-0.11); LYMPHOCYTES 11.5 %; MANUAL DIFF NO %; MEAN CORPUSCULAR HEMOGLOB 30.6 pg (26.0-34.0); MEAN CORPUSCULAR VOLUME 92.6 fL (80-100); MEAN PLATELET VOLUME 8.8 fL (9.2-13.0); MONOCYTES 8.2 %; MONOCYTES ABSOLUTE 0.86 10/3/uL (0.21-1.20); NEUTROPHILS 78.5 %; NEUTROPHILS ABSOLUTE 8.23 10/3/uL (2.02-8.40); PLATELET COUNT 374 10/3/uL (150-400); RBC DISTRIBUTION WIDTH 14.6 % (12.0-16.0); RED CELL COUNT 3.76 10/6/uL (4.7-6.1); WHITE BLOOD CELLS 10.5 10/3/uL (4.5-10.5)
[2016-06-01 06:39] LABS: ALBUMIN 2.2 G/DL (3.5-5.0); BUN (BLOOD UREA NITROGEN) 9 MG/DL (6-23); CALCIUM, SERUM 9.1 MG/DL (8.5-10.4); CHLORIDE, SERUM 94 MMOL/L (96-112); CO2 (CARBON DIOXIDE) 27 MMOL/L (24-34); CREATININE 1.39 MG/DL (0.70-1.30); GFR AFRICAN AMERICAN 54 ML/MIN (>=60); GFR NON AFRICAN AMERICAN 47 ML/MIN (>=60); GLUCOSE, SERUM 123 MG/DL (60-99); PHOSPHORUS, SERUM 2.6 MG/DL (2.5-4.5); POTASSIUM, SERUM 4.2 MMOL/L (3.5-5.3); SODIUM, SERUM 131 MMOL/L (135-148)
[2016-06-02 07:14] LABS: CHLORIDE, SERUM 94 MMOL/L (96-112); CO2 (CARBON DIOXIDE) 26 MMOL/L (24-34); CREATININE 1.49 MG/DL (0.70-1.30); GFR AFRICAN AMERICAN 50 ML/MIN (>=60); GFR NON AFRICAN AMERICAN 43 ML/MIN (>=60); GLUCOSE, SERUM 121 MG/DL (60-99); POTASSIUM, SERUM 4.1 MMOL/L (3.5-5.3); SODIUM, SERUM 130 MMOL/L (135-148)
[2016-06-02 07:18] LABS: BUN (BLOOD UREA NITROGEN) 15 MG/DL (6-23)
[2016-06-03 06:01] LABS: BASOPHILS 0.2 %; BASOPHILS ABSOLUTE 0.02 10/3/uL (0.0-0.16); EOSINOPHILS 0.3 %; EOSINOPHILS ABSOLUTE 0.03 10/3/uL (0.0-0.53); HEMATOCRIT 32.5 % (40.0-51.0); HEMOGLOBIN 11.2 g/dL (13.6-17.8); IMMATURE GRANULOCYTES 0.4 %; IMMATURE GRANULOCYTES ABSOLUTE 0.04 10/3/uL (0.0-0.11); LYMPHOCYTES 14.2 %; LYMPHOCYTES ABSOLUTE 1.62 10/3/uL (0.67-4.30); MEAN CORPUS HGB CONC 34.5 g/dL (32.0-36.0); MEAN CORPUSCULAR HEMOGLOB 30.3 pg (26.0-34.0); MEAN PLATELET VOLUME 9.9 fL (9.2-13.0); MONOCYTES 6.8 %; MONOCYTES ABSOLUTE 0.78 10/3/uL (0.21-1.20); NEUTROPHILS 78.1 %; NEUTROPHILS ABSOLUTE 8.93 10/3/uL (2.02-8.40); PLATELET COUNT 483 10/3/uL (150-400); RBC DISTRIBUTION WIDTH 14.6 % (12.0-16.0); WHITE BLOOD CELLS 11.4 10/3/uL (4.5-10.5)
[2016-06-03 06:13] LABS: MANUAL DIFF NO %; MEAN CORPUSCULAR VOLUME 87.8 fL (80-100)
[2016-06-03 10:23] LABS: CALCIUM, SERUM 9.4 MG/DL (8.5-10.4); CHLORIDE, SERUM 87 MMOL/L (96-112); CO2 (CARBON DIOXIDE) 29 MMOL/L (24-34); GFR AFRICAN AMERICAN 29 ML/MIN (>=60); GFR NON AFRICAN AMERICAN 25 ML/MIN (>=60); GLUCOSE, SERUM 133 MG/DL (60-99); POTASSIUM, SERUM 3.9 MMOL/L (3.5-5.3); SODIUM, SERUM 129 MMOL/L (135-148)
[2016-06-03 10:24] LABS: BUN (BLOOD UREA NITROGEN) 26 MG/DL (6-23); CREATININE 2.32 MG/DL (0.70-1.30)
[2016-06-04 04:57] LABS: CHLORIDE, SERUM 87 MMOL/L (96-112); CO2 (CARBON DIOXIDE) 28 MMOL/L (24-34); GFR AFRICAN AMERICAN 22 ML/MIN (>=60); GFR NON AFRICAN AMERICAN 19 ML/MIN (>=60); GLUCOSE, SERUM 129 MG/DL (60-99); PHOSPHORUS, SERUM 3.2 MG/DL (2.5-4.5); POTASSIUM, SERUM 4.1 MMOL/L (3.5-5.3); SODIUM, SERUM 129 MMOL/L (135-148)
[2016-06-04 05:01] LABS: BUN (BLOOD UREA NITROGEN) 39 MG/DL (6-23); CREATININE 2.96 MG/DL (0.70-1.30)
[2016-06-04 14:35] LABS: ASCORBIC ACID (UR NOT ORDER) NEG (NEG); BILIRUBIN, URINE NEGATIVE (NEG); KETONE, URINE NEGATIVE (NEG); LEUKOCYTE ESTERASE(NOT OR LARGE (NEG); WBC (NOT ORDERED) (RFLEX) 27 (0-5)
[2016-06-04 14:45] LABS: CALCIUM, SERUM 8.6 MG/DL (8.5-10.4); CHLORIDE, SERUM 90 MMOL/L (96-112); CO2 (CARBON DIOXIDE) 30 MMOL/L (24-34); COMPLEMENT C3 150 MG/DL (75-161); COMPLEMENT C4 34.3 MG/DL (16-47); GFR AFRICAN AMERICAN 17 ML/MIN (>=60); GFR NON AFRICAN AMERICAN 15 ML/MIN (>=60); GLUCOSE, SERUM 152 MG/DL (60-99); POTASSIUM, SERUM 4.1 MMOL/L (3.5-5.3); SODIUM, SERUM 128 MMOL/L (135-148)
[2016-06-04 14:47] LABS: BUN (BLOOD UREA NITROGEN) 43 MG/DL (6-23); CREATININE 3.59 MG/DL (0.70-1.30)
[2016-06-04 14:59] LABS: CREATININE, URINE 40.9 MG/DL
[2016-06-05 08:34] LABS: BASOPHILS 0.1 %; BASOPHILS ABSOLUTE 0.01 10/3/uL (0.0-0.16); EOSINOPHILS 0 %; HEMATOCRIT 32.7 % (40.0-51.0); HEMOGLOBIN 10.8 g/dL (13.6-17.8); IMMATURE GRANULOCYTES 0.3 %; IMMATURE GRANULOCYTES ABSOLUTE 0.03 10/3/uL (0.0-0.11); LYMPHOCYTES 14.8 %; LYMPHOCYTES ABSOLUTE 1.34 10/3/uL (0.67-4.30); MEAN CORPUSCULAR HEMOGLOB 29.3 pg (26.0-34.0); MEAN CORPUSCULAR VOLUME 88.6 fL (80-100); MEAN PLATELET VOLUME 9.4 fL (9.2-13.0); MONOCYTES 6.8 %; MONOCYTES ABSOLUTE 0.62 10/3/uL (0.21-1.20); NEUTROPHILS ABSOLUTE 7.06 10/3/uL (2.02-8.40); PLATELET COUNT 393 10/3/uL (150-400); RBC DISTRIBUTION WIDTH 14.4 % (12.0-16.0); RED CELL COUNT 3.69 10/6/uL (4.7-6.1); WHITE BLOOD CELLS 9.1 10/3/uL (4.5-10.5)
[2016-06-05 08:36] LABS: MANUAL DIFF NO %
[2016-06-05 08:38] LABS: CALCIUM, SERUM 8.5 MG/DL (8.5-10.4); CHLORIDE, SERUM 87 MMOL/L (96-112); CO2 (CARBON DIOXIDE) 27 MMOL/L (24-34); PHOSPHORUS, SERUM 3.4 MG/DL (2.5-4.5); SODIUM, SERUM 127 MMOL/L (135-148)
[2016-06-05 08:40] LABS: T PROTEIN (ELECT)(NOT OR 5.9 G/DL (6.0-8.5)
[2016-06-05 08:42] LABS: BUN (BLOOD UREA NITROGEN) 51 MG/DL (6-23); CREATININE 4.78 MG/DL (0.70-1.30); GFR AFRICAN AMERICAN 12 ML/MIN (>=60); GFR NON AFRICAN AMERICAN 11 ML/MIN (>=60); GLUCOSE, SERUM 101 MG/DL (60-99)
[2016-06-06 08:19] LABS: BASOPHILS 0 %; EOSINOPHILS 0 %; HEMATOCRIT 34.5 % (40.0-51.0); HEMOGLOBIN 11.6 g/dL (13.6-17.8); IMMATURE GRANULOCYTES 0.5 %; IMMATURE GRANULOCYTES ABSOLUTE 0.03 10/3/uL (0.0-0.11); LYMPHOCYTES 11.7 %; LYMPHOCYTES ABSOLUTE 0.68 10/3/uL (0.67-4.30); MEAN CORPUS HGB CONC 33.6 g/dL (32.0-36.0); MEAN CORPUSCULAR VOLUME 89.1 fL (80-100); MEAN PLATELET VOLUME 9.3 fL (9.2-13.0); MONOCYTES 1.2 %; MONOCYTES ABSOLUTE 0.07 10/3/uL (0.21-1.20); NEUTROPHILS 86.6 %; NEUTROPHILS ABSOLUTE 5.03 10/3/uL (2.02-8.40); PLATELET COUNT 437 10/3/uL (150-400); RBC DISTRIBUTION WIDTH 14.2 % (12.0-16.0); RED CELL COUNT 3.87 10/6/uL (4.7-6.1); WHITE BLOOD CELLS 5.8 10/3/uL (4.5-10.5)
[2016-06-06 08:27] LABS: CHLORIDE, SERUM 84 MMOL/L (96-112); CO2 (CARBON DIOXIDE) 27 MMOL/L (24-34); MANUAL DIFF NO %; POTASSIUM, SERUM 4.3 MMOL/L (3.5-5.3); SODIUM, SERUM 125 MMOL/L (135-148)
[2016-06-06 08:28] LABS: BUN (BLOOD UREA NITROGEN) 67 MG/DL (6-23); CREATININE 6.46 MG/DL (0.70-1.30); GFR AFRICAN AMERICAN 8 ML/MIN (>=60); GFR NON AFRICAN AMERICAN 7 ML/MIN (>=60); GLUCOSE, SERUM 147 MG/DL (60-99)
[2016-06-07 06:13] LABS: BASOPHILS 0.1 %; BASOPHILS ABSOLUTE 0.01 10/3/uL (0.0-0.16); EOSINOPHILS 0 %; HEMATOCRIT 31.1 % (40.0-51.0); HEMOGLOBIN 10.8 g/dL (13.6-17.8); IMMATURE GRANULOCYTES 0.4 %; IMMATURE GRANULOCYTES ABSOLUTE 0.04 10/3/uL (0.0-0.11); LYMPHOCYTES 12.8 %; LYMPHOCYTES ABSOLUTE 1.21 10/3/uL (0.67-4.30); MEAN CORPUS HGB CONC 34.7 g/dL (32.0-36.0); MEAN PLATELET VOLUME 9.1 fL (9.2-13.0); MONOCYTES 5.9 %; MONOCYTES ABSOLUTE 0.56 10/3/uL (0.21-1.20); NEUTROPHILS 80.8 %; NEUTROPHILS ABSOLUTE 7.64 10/3/uL (2.02-8.40); PLATELET COUNT 433 10/3/uL (150-400); RBC DISTRIBUTION WIDTH 14.3 % (12.0-16.0)
[2016-06-07 06:20] LABS: INTERNATIONAL NORMAL RATI 1.3 UNITS (-); MANUAL DIFF NO %; MEAN CORPUSCULAR VOLUME 86.4 fL (80-100); PARTIAL THROMBO TIME 36.7 SEC (22.5-37.2); WHITE BLOOD CELLS 9.5 10/3/uL (4.5-10.5)
[2016-06-07 06:24] LABS: ALBUMIN 2.3 G/DL (3.5-5.0); CALCIUM, SERUM 8.6 MG/DL (8.5-10.4); CHLORIDE, SERUM 84 MMOL/L (96-112); CO2 (CARBON DIOXIDE) 25 MMOL/L (24-34); CREATININE 6.86 MG/DL (0.70-1.30); GFR AFRICAN AMERICAN 8 ML/MIN (>=60); GFR NON AFRICAN AMERICAN 7 ML/MIN (>=60); GLUCOSE, SERUM 121 MG/DL (60-99); POTASSIUM, SERUM 4.8 MMOL/L (3.5-5.3); SODIUM, SERUM 122 MMOL/L (135-148)
[2016-06-07 06:25] LABS: BUN (BLOOD UREA NITROGEN) 86 MG/DL (6-23); PHOSPHORUS, SERUM 4.5 MG/DL (2.5-4.5)
[2016-06-07 09:56] LABS: A/G 0.62 RATIO (0.9-2.10); ALB RELATIVE % 38.1 % (60.0-89.0); ALBUMIN (ELECTRO) 2.25 GM/DL (3.2-5.5); ALPHA 1 (ELECTRO) 0.52 GM/DL (0.1-0.4); ALPHA 1 RELAT % (NOT ORD) 8.8 % (1.0-4.0); ALPHA 2 (ELECTRO) 1.35 GM/DL (0.5-1.10); ALPHA 2 RELAT % 22.9 % (4.5-26.0); BETA GLOBULIN (SPE) 0.83 GM/DL (0.60-1.30); GAMMA GLOBULIN (SPE) 0.96 G/DL (0.70-1.60); GAMMA RELAT % 16.2 % (6.0-22.0)
[2016-06-07 23:22] LABS: ANCA <1:20 (()); MYELOPEROXIDASE ANTIBODY <0.2 AI (<1.0); PROTEINASE 3 ANTIBODY <0.2 AI (<1.0)
[2016-06-08 08:32] LABS: BASOPHILS 0 %; EOSINOPHILS 0 %; HEMATOCRIT 33.5 % (40.0-51.0); HEMOGLOBIN 11.3 g/dL (13.6-17.8); IMMATURE GRANULOCYTES 0.5 %; IMMATURE GRANULOCYTES ABSOLUTE 0.03 10/3/uL (0.0-0.11); LYMPHOCYTES 13.4 %; LYMPHOCYTES ABSOLUTE 0.75 10/3/uL (0.67-4.30); MEAN CORPUS HGB CONC 33.7 g/dL (32.0-36.0); MEAN CORPUSCULAR HEMOGLOB 28.8 pg (26.0-34.0); MEAN CORPUSCULAR VOLUME 85.5 fL (80-100); MEAN PLATELET VOLUME 9.3 fL (9.2-13.0); MONOCYTES 0.7 %; MONOCYTES ABSOLUTE 0.04 10/3/uL (0.21-1.20); NEUTROPHILS 85.4 %; NEUTROPHILS ABSOLUTE 4.79 10/3/uL (2.02-8.40); PLATELET COUNT 451 10/3/uL (150-400); RBC DISTRIBUTION WIDTH 14.5 % (12.0-16.0); RED CELL COUNT 3.92 10/6/uL (4.7-6.1)
[2016-06-08 08:33] LABS: CALCIUM, SERUM 8.5 MG/DL (8.5-10.4); CHLORIDE, SERUM 88 MMOL/L (96-112); CO2 (CARBON DIOXIDE) 28 MMOL/L (24-34); CREATININE 6.48 MG/DL (0.70-1.30); GFR AFRICAN AMERICAN 8 ML/MIN (>=60); GFR NON AFRICAN AMERICAN 7 ML/MIN (>=60); SODIUM, SERUM 126 MMOL/L (135-148)
[2016-06-08 08:34] LABS: BUN (BLOOD UREA NITROGEN) 93 MG/DL (6-23); GLUCOSE, SERUM 158 MG/DL (60-99)
[2016-06-08 08:36] LABS: MANUAL DIFF NO %; WHITE BLOOD CELLS 5.6 10/3/uL (4.5-10.5)
[2016-06-08 12:25] LABS: HEPATITIS B SURFACE ANTIGEN NON-REACTIVE (NON-REACT)
[2016-06-08 12:52] LABS: HEPATITIS C ANTIBODY NON-REACTIVE (NON-REACT)
[2016-06-08 12:53] LABS: HEPATITIS B CORE AB IGM NON-REACTIVE (NON-REAC); HIV COMBO NON-REACTIVE (NON REAC)
[2016-06-08 12:54] LABS: HEP A ANTIBODY IGM NON-REACTIVE (NON-REACT)
[2016-06-08 14:56] LABS: CHOL/HDL RATIO(NOT ORDER) 5.8 (0-5); CHOLESTEROL 173 MG/DL (< 200); HDL CHOLESTEROL 30 MG/DL (> 39); LDL CHOLESTEROL 102 MG/DL (< 130); NON-HDL CHOLESTEROL 143 MG/DL (< 160); TRIGLYCERIDE 205 MG/DL (< 150)
[2016-06-09 18:50] LABS: BASOPHILS 0 %; EOSINOPHILS 0 %; HEMOGLOBIN 11.7 g/dL (13.6-17.8); IMMATURE GRANULOCYTES 1.4 %; IMMATURE GRANULOCYTES ABSOLUTE 0.11 10/3/uL (0.0-0.11); LYMPHOCYTES 9.3 %; LYMPHOCYTES ABSOLUTE 0.72 10/3/uL (0.67-4.30); MEAN CORPUS HGB CONC 33.4 g/dL (32.0-36.0); MEAN CORPUSCULAR HEMOGLOB 29.3 pg (26.0-34.0); MEAN CORPUSCULAR VOLUME 87.5 fL (80-100); MEAN PLATELET VOLUME 9.4 fL (9.2-13.0); MONOCYTES ABSOLUTE 0.08 10/3/uL (0.21-1.20); NEUTROPHILS 88.3 %; NEUTROPHILS ABSOLUTE 6.83 10/3/uL (2.02-8.40); PLATELET COUNT 459 10/3/uL (150-400); RBC DISTRIBUTION WIDTH 14.7 % (12.0-16.0); WHITE BLOOD CELLS 7.7 10/3/uL (4.5-10.5)
[2016-06-09 18:53] LABS: MANUAL DIFF NO %
[2016-06-09 19:03] LABS: ALBUMIN 2.7 G/DL (3.5-5.0); CALCIUM, SERUM 8.2 MG/DL (8.5-10.4); CHLORIDE, SERUM 93 MMOL/L (96-112); CO2 (CARBON DIOXIDE) 27 MMOL/L (24-34); POTASSIUM, SERUM 4.8 MMOL/L (3.5-5.3); SODIUM, SERUM 131 MMOL/L (135-148)
[2016-06-09 19:05] LABS: BUN (BLOOD UREA NITROGEN) 77 MG/DL (6-23); CREATININE 4.33 MG/DL (0.70-1.30); GFR AFRICAN AMERICAN 14 ML/MIN (>=60); GFR NON AFRICAN AMERICAN 12 ML/MIN (>=60); GLUCOSE, SERUM 254 MG/DL (60-99)
[2016-06-10 12:47] LABS: ALBUMIN 3.1 G/DL (3.5-5.0); BUN (BLOOD UREA NITROGEN) 61 MG/DL (6-23); CALCIUM, SERUM 8.9 MG/DL (8.5-10.4); CHLORIDE, SERUM 96 MMOL/L (96-112); CO2 (CARBON DIOXIDE) 25 MMOL/L (24-34); CREATININE 3.32 MG/DL (0.70-1.30); GFR AFRICAN AMERICAN 19 ML/MIN (>=60); GFR NON AFRICAN AMERICAN 16 ML/MIN (>=60); GLUCOSE, SERUM 122 MG/DL (60-99); POTASSIUM, SERUM 4.5 MMOL/L (3.5-5.3); SODIUM, SERUM 134 MMOL/L (135-148)
[2016-06-11 09:30] LABS: BASOPHILS 0.1 %; BASOPHILS ABSOLUTE 0.02 10/3/uL (0.0-0.16); EOSINOPHILS 0 %; HEMATOCRIT 37.9 % (40.0-51.0); HEMOGLOBIN 12.9 g/dL (13.6-17.8); IMMATURE GRANULOCYTES ABSOLUTE 0.33 10/3/uL (0.0-0.11); LYMPHOCYTES 8.9 %; LYMPHOCYTES ABSOLUTE 1.46 10/3/uL (0.67-4.30); MEAN CORPUSCULAR HEMOGLOB 30.4 pg (26.0-34.0); MEAN CORPUSCULAR VOLUME 89.2 fL (80-100); MEAN PLATELET VOLUME 9.1 fL (9.2-13.0); MONOCYTES 2.3 %; MONOCYTES ABSOLUTE 0.38 10/3/uL (0.21-1.20); NEUTROPHILS 86.7 %; NEUTROPHILS ABSOLUTE 14.26 10/3/uL (2.02-8.40); PLATELET COUNT 514 10/3/uL (150-400); RED CELL COUNT 4.25 10/6/uL (4.7-6.1)
[2016-06-11 09:33] LABS: MANUAL DIFF NO %; WHITE BLOOD CELLS 16.5 10/3/uL (4.5-10.5)
[2016-06-11 09:35] LABS: INTERNATIONAL NORMAL RATI 1.2 UNITS (-); PROTIME (NOT ORD) 15.5 SEC (12.0-14.5)
[2016-06-11 09:42] LABS: CALCIUM, SERUM 9.1 MG/DL (8.5-10.4); CHLORIDE, SERUM 97 MMOL/L (96-112); CO2 (CARBON DIOXIDE) 22 MMOL/L (24-34); CREATININE 3.25 MG/DL (0.70-1.30); GFR AFRICAN AMERICAN 19 ML/MIN (>=60); GFR NON AFRICAN AMERICAN 17 ML/MIN (>=60); PHOSPHORUS, SERUM 3.1 MG/DL (2.5-4.5); SODIUM, SERUM 133 MMOL/L (135-148)
[2016-06-11 09:44] LABS: BUN (BLOOD UREA NITROGEN) 66 MG/DL (6-23); GLUCOSE, SERUM 209 MG/DL (60-99); POTASSIUM, SERUM 4.8 MMOL/L (3.5-5.3)
[2016-06-12 07:03] LABS: INTERNATIONAL NORMAL RATI 1.6 UNITS (-); PROTIME (NOT ORD) 18.7 SEC (12.0-14.5)
[2016-06-12 07:11] LABS: BASOPHILS 0.1 %; BASOPHILS ABSOLUTE 0.01 10/3/uL (0.0-0.16); EOSINOPHILS 0 %; HEMATOCRIT 36.1 % (40.0-51.0); IMMATURE GRANULOCYTES 3.6 %; IMMATURE GRANULOCYTES ABSOLUTE 0.44 10/3/uL (0.0-0.11); MEAN CORPUS HGB CONC 33.2 g/dL (32.0-36.0); MEAN CORPUSCULAR HEMOGLOB 29.9 pg (26.0-34.0); MEAN PLATELET VOLUME 9.1 fL (9.2-13.0); MONOCYTES 3.9 %; MONOCYTES ABSOLUTE 0.48 10/3/uL (0.21-1.20); NEUTROPHILS 83.4 %; NEUTROPHILS ABSOLUTE 10.26 10/3/uL (2.02-8.40); PLATELET COUNT 459 10/3/uL (150-400); RBC DISTRIBUTION WIDTH 15.2 % (12.0-16.0); RED CELL COUNT 4.01 10/6/uL (4.7-6.1); WHITE BLOOD CELLS 12.3 10/3/uL (4.5-10.5)
[2016-06-12 07:13] LABS: MANUAL DIFF NO %
[2016-06-12 07:14] LABS: ALBUMIN 2.7 G/DL (3.5-5.0); BUN (BLOOD UREA NITROGEN) 69 MG/DL (6-23); CALCIUM, SERUM 8.6 MG/DL (8.5-10.4); CHLORIDE, SERUM 101 MMOL/L (96-112); CO2 (CARBON DIOXIDE) 25 MMOL/L (24-34); CREATININE 2.88 MG/DL (0.70-1.30); GFR AFRICAN AMERICAN 23 ML/MIN (>=60); GFR NON AFRICAN AMERICAN 19 ML/MIN (>=60); GLUCOSE, SERUM 176 MG/DL (60-99); PHOSPHORUS, SERUM 3.1 MG/DL (2.5-4.5); POTASSIUM, SERUM 4.3 MMOL/L (3.5-5.3); SODIUM, SERUM 137 MMOL/L (135-148)
[2016-06-12 21:37] LABS: COMPLEMENT COMPONENT C5 20 mg/dL (6-20)
[2016-06-13 07:30] LABS: INTERNATIONAL NORMAL RATI 1.6 UNITS (-); PROTIME (NOT ORD) 18.7 SEC (12.0-14.5)
[2016-06-13 07:38] LABS: ALBUMIN 2.8 G/DL (3.5-5.0); BUN (BLOOD UREA NITROGEN) 62 MG/DL (6-23); CALCIUM, SERUM 8.6 MG/DL (8.5-10.4); CHLORIDE, SERUM 101 MMOL/L (96-112); CO2 (CARBON DIOXIDE) 25 MMOL/L (24-34); CREATININE 2.31 MG/DL (0.70-1.30); GFR AFRICAN AMERICAN 29 ML/MIN (>=60); GFR NON AFRICAN AMERICAN 25 ML/MIN (>=60); GLUCOSE, SERUM 119 MG/DL (60-99); PHOSPHORUS, SERUM 2.8 MG/DL (2.5-4.5); POTASSIUM, SERUM 4.2 MMOL/L (3.5-5.3); SODIUM, SERUM 138 MMOL/L (135-148)
[2016-06-14 06:46] LABS: HEMATOCRIT 36.6 % (40.0-51.0); HEMOGLOBIN 12.2 g/dL (13.6-17.8); MEAN CORPUS HGB CONC 33.3 g/dL (32.0-36.0); MEAN CORPUSCULAR HEMOGLOB 30.1 pg (26.0-34.0); MEAN CORPUSCULAR VOLUME 90.4 fL (80-100); MEAN PLATELET VOLUME 9.2 fL (9.2-13.0); PLATELET COUNT 354 10/3/uL (150-400); RBC DISTRIBUTION WIDTH 15.3 % (12.0-16.0); RED CELL COUNT 4.05 10/6/uL (4.7-6.1); WHITE BLOOD CELLS 12.5 10/3/uL (4.5-10.5)
[2016-06-14 06:47] LABS: MANUAL DIFF YES %
[2016-06-14 06:51] LABS: INTERNATIONAL NORMAL RATI 1.5 UNITS (-); PROTIME (NOT ORD) 17.6 SEC (12.0-14.5)
[2016-06-14 07:00] LABS: ALBUMIN 2.7 G/DL (3.5-5.0); CALCIUM, SERUM 8.7 MG/DL (8.5-10.4); CHLORIDE, SERUM 101 MMOL/L (96-112); CO2 (CARBON DIOXIDE) 24 MMOL/L (24-34); GFR AFRICAN AMERICAN 33 ML/MIN (>=60); GFR NON AFRICAN AMERICAN 28 ML/MIN (>=60); GLUCOSE, SERUM 110 MG/DL (60-99); PHOSPHORUS, SERUM 2.6 MG/DL (2.5-4.5); SODIUM, SERUM 137 MMOL/L (135-148)
[2016-06-14 07:01] LABS: BUN (BLOOD UREA NITROGEN) 55 MG/DL (6-23)
[2016-06-14 07:18] LABS: BAND NEUTROPHILS 2 %; EOSINOPHILS 1 %; EOSINOPHILS ABSOLUTE (CALC) 0.13 10/3/uL (0.0-0.53); IMMATURE GRANS ABSOLUTE (CALC) 0.13 10/3/uL (0.0-0.11); LYMPHOCYTES 10 %; LYMPHOCYTES ABSOLUTE (CALC) 1.25 10/3/uL (0.67-4.30); METAMYELOCYTES 1 %; MONOCYTES 4 %; PLATELET ESTIMATE ADQ (ADEQUATE); RBC MORPHOLOGY NORM (NORMAL); SEGMENTED NEUTROPHIL (0) 82 %; TOTAL NUCLEATED CELLS 100
[2016-06-16 00:14] LABS: COMPLEMENT COMPONENT 2 3.9 mg/dL (1.0-4.0)
[2016-06-30] MEDS ORDERED: TOPXL50 PO (14:59)
[2016-06-30] MEDS ORDERED: SEROQUEL XR50 MG PO (14:59)
[2016-06-30] MEDS ORDERED: NORCO1 TA1 PO (14:59)
[2016-06-30] MEDS ORDERED: RYTHMOL225 MG PO (15:00)
[2016-06-30] MEDS ORDERED: C25 PO (15:00)
[2016-06-30] MEDS ORDERED: OCEAN NAS (15:00)
[2016-06-30] MEDS ORDERED: L40 PO (15:00)
[2016-06-30] MEDS ORDERED: PREV15 PO (15:00)
[2016-07-04] MEDS ORDERED: ELIQUIS 2.5 MG2.5 MG PO (12:04)
== END 2016-06-14 21:03 | DRG 666 ==
LOC: ER 23:00 → 2SO 05-25 02:29 → SDC/OF 05-31 08:58 → 4SO 05-31 13:35
PROVIDERS: Anesthesiology; Emergency Medicine; Hospitalist; Internal Medicine; Internal Medicine Nephrology; Nurse Practitioner; Nurse Practitioner Gerontology; Urology
PROC: 0VT08ZZ Resection of Prostate, Via Natural or Artificial Opening Endoscopic (ICD-10-PCS; principal; 2016-05-31 10:00)
PROC: 05HM33Z Insertion of Infusion Device into Right Internal Jugular Vein, Percutaneous Approach (ICD-10-PCS; 2016-06-07)
PROC: B543ZZA Ultrasonography of Right Jugular Veins, Guidance (ICD-10-PCS; 2016-06-07)
PROC: 0TB33ZX Excision of Right Kidney Pelvis, Percutaneous Approach, Diagnostic (ICD-10-PCS; 2016-06-07)
PROC: 5A1D60Z (ICD-10-PCS; 2016-06-08)
DX: T83.518A Infection and inflammatory reaction due to other urinary catheter, initial encounter (principal); N39.0 Urinary tract infection, site not specified; N17.8 Other acute kidney failure; N13.8 Other obstructive and reflux uropathy; E87.1 Hypo-osmolality and hyponatremia; I48.2 Chronic atrial fibrillation; N40.1 Benign prostatic hyperplasia with lower urinary tract symptoms; Y84.6 Urinary catheterization as the cause of abnormal reaction of the patient, or of later complication, without mention of misadventure at the time of the procedure; Y92.009 Unspecified place in unspecified non-institutional (private) residence as the place of occurrence of the external cause; N18.3 Chronic kidney disease, stage 3 (moderate); I12.9 Hypertensive chronic kidney disease with stage 1 through stage 4 chronic kidney disease, or unspecified chronic kidney disease; M10.9 Gout, unspecified; I89.0 Lymphedema, not elsewhere classified; Z86.73 Personal history of transient ischemic attack (TIA), and cerebral infarction without residual deficits; Z98.890 Other specified postprocedural states; Z88.8 Allergy status to other drugs, medicaments and biological substances; Z87.891 Personal history of nicotine dependence; Z80.9 Family history of malignant neoplasm, unspecified; Z79.01 Long term (current) use of anticoagulants; L27.0 Generalized skin eruption due to drugs and medicaments taken internally; T36.95XA Adverse effect of unspecified systemic antibiotic, initial encounter; K59.00 Constipation, unspecified
CPT/HCPCS: 36415; 36558; 36589; 50200; 71010; 76000; 76775; 76937; 77001; 77012; 80048; 80053; 80061; 80069; 80074; 80202; 81001; 82570; 82962; 83036; 83516; 83516-59; 83735; 83880; 84100; 84155; 84165; 84300; 84443; 84540; 85025; 85610; 85652; 85730; 86160; 86255; 86850; 86900; 86901; 87077; 87086; 87186; 87389; 88305; 88313; 88346; 88348; 88350; 89190; 93005; 93970; 97110-GO; 97110-GP; 97116-GP; 97161-GP; 97165-GO; 97535-GO; 99152; 99153; 99284; 99285; A9270-GY; C1750; C1769; G0257; J0360; J0694; J0878; J1170; J2250; J2270; J2405; J2710; J2930; J3010; J3370